=== PATIENT | female | born 1970 | race Hispanic/Latino ===

== ENCOUNTER 2019-11-16 01:28 | Emergency (ER) | payer OTHER ==
[~2019-11-16] VITALS: Ht 160 cm; Wt 89.8 kg
[2019-11-16] MEDS ORDERED: SODIUM CHLORIDE 0.9% 1000ML 1,000 ML IV SCH (02:00)
[2019-11-16] MEDS ORDERED: SODIUM CHLORIDE 0.9% 1000ML 1,000 ML ONE (02:05)
[2019-11-16] MEDS ORDERED: POTASSIUM CHLORIDE 20 MEQ TAB CR PO STA (02:27)
[2019-11-16] MEDS ORDERED: LACTATED RINGER'S 1,000 ML IV ONE ×2 (02:30→03:00)
[2019-11-16] MEDS ORDERED: LACTATED RINGER'S 1,000 ML ONE ×2 (02:38→03:10)
[2019-11-16] MEDS ORDERED: POTASSIUM CHLORIDE 20 MEQ TAB CR PO ONE (03:32)
[2019-11-16] MEDS ORDERED: POTASSIUM CHLO10 ME1 PO (03:58)
== END 2019-11-16 04:10 | disposition home or self-care (01) ==
LOC: FSED 01:28
DX: M79.662 Pain in left lower leg (principal); E11.65 Type 2 diabetes mellitus with hyperglycemia; I95.0 Idiopathic hypotension; E87.6 Hypokalemia; K52.9 Noninfective gastroenteritis and colitis, unspecified; D64.9 Anemia, unspecified; E66.9 Obesity, unspecified; Z98.84 Bariatric surgery status
CPT/HCPCS: 80048; 80076; 81003; 85025; 85379; 93005; 99284; J7030; J7121